=== PATIENT | male | born 1945 | race Caucasian/White ===

== ENCOUNTER 2020-06-30 11:33 | Emergency (ER) | payer MEDICARE ==
[~2020-06-30] VITALS: Ht 180.3 cm; Wt 93.2 kg
[2020-06-30 11:35] VITALS: BP 133/79; Ht 180.3 cm; Wt 93.2 kg
[2020-06-30] MEDS ORDERED: PROPRANOLOL HCL10 MG PO (11:51)
[2020-06-30] MEDS ORDERED: SINEMET 25-1001 EAC1 PO (11:51)
[2020-06-30] MEDS ORDERED: JANTOVEN10 MG PO (11:52)
[2020-06-30] MEDS ORDERED: MYSOLINE 50 MG50 MG PO (11:52)
[2020-06-30] MEDS ORDERED: ULTRAM50 MG PO (11:53)
[2020-06-30] MEDS ORDERED: LISINOPRIL2.5 MG PO (11:53)
[2020-06-30] MEDS ORDERED: LANOXIN125 MCG PO (11:53)
[2020-06-30] MEDS ORDERED: GLUCOPHAGE500 MG PO (11:54)
[2020-06-30] MEDS ORDERED: NOVOLIN 70/30 110 ML SUBD (11:54)
[2020-06-30 11:55] LABS: BASOPHILS 0.5 % (0-2); EOSINOPHILS 3.6 % (0-7); HEMATOCRIT 45.5 % (42.0-54.0); HEMOGLOBIN 15.3 g/dL (13.5-17.5); IMMATURE GRANULOCYTES 0.2 % (0-5); LYMPHOCYTE ABS# 1.26 10x3/uL (1.32-3.57); LYMPHOCYTES 22.7 % (15-50); MCH 32.2 pg (26.0-34.0); MCHC 33.6 g/dL (31.0-37.0); MCV 95.8 fL (80.0-100.0); MEAN PLATELET VOLUME 9.5 fL (7.4-10.4); MONOCYTES 11.2 % (2-11); NEUTROPHIL ABS# 3.44 10x3/uL (1.78-5.38); NEUTROPHILS 61.8 % (40-80); PLATELET COUNT 194 10x3/uL (130-400); RBC 4.75 10x6/uL (4.20-6.10); RDW 13.9 % (11.5-14.5); WBC 5.6 10x3/uL (4.8-10.8)
[2020-06-30 12:10] LABS: ANION GAP 15.6 mmol/L (8-16); CALCIUM 8.6 mg/dL (8.5-10.1); CARBON DIOXIDE 24.7 mmol/L (21.0-32.0); CREATININE - SERUM 1.1 mg/dL (0.6-1.3); POTASSIUM - SERUM 4.3 mmol/L (3.5-5.1)
[2020-06-30 12:16] LABS: ALBUMIN 3.1 g/dL (3.4-5.0); BILIRUBIN - TOTAL 0.41 mg/dL (0.2-1.3); PROTEIN - SERUM 7.4 g/dL (6.4-8.2)
[2020-06-30 13:00] LABS: APTT 79.7 SECONDS (22.8-39.4); INR 4.19 (0.85-1.17); PROTIME 37.7 SECONDS (11.6-15.0)
[2020-06-30] MEDS ORDERED: WARFARIN SODIU7.5 MG PO (13:21)
[2020-06-30 14:16] LABS: NITRITE NEGATIVE (NEGATIVE)
[2020-06-30 14:17] LABS: BACTERIA FEW HPF (NONE SEEN); BILIRUBIN NEGATIVE (NEGATIVE); KETONE SMALL mg/dL (NEGATIVE); SQUAMOUS EPITHELIAL RARE HPF (0-4); UROBILINOGEN NORMAL mg/dL (< 2); WHITE CELLS - URINE RARE HPF (0-1)
--- NOTE | 2020-06-30 16:28 | NUR ---
After obtaining verbal consent, CM met with patient and his caregiver / friend, Apoorva Foote [phone], about discharge planning / needs. Apoorva states she lives with the patient and helps him with his personal care needs. States he has been falling a lot lately and she is not able to lift the patient. States they have put his bed mattress on the floor to decrease risk of falls. States Dr. Lagunas's office has been trying to help them get patient into a fci. Patient is alert and oriented. Denies having a P.O.A. States his nephew, Dimitry Rojo, is his nearest living relative. Does not have Dimitry's phone number here with him. States it is at home. SHERYL called and spoke with Ashley at Dr. Lagunas's office. Ashley informed CM that they sent a referral to [facility] for patient. SHERYL asked Ashley if it would be okay to order home health for PT, OT, Home Health Aide and Academy Director. So they could work with patient until he was able to go into the fci. Ashley stated that would be okay and she would let Dr. Lagunas know. CM called and spoke with Flores at [facility] about [facility]. Flores informed CM that they were going to try to get patient in for SNF rehab and then, if he needed, group home care placement after that. But they are out of network with patient's insurance and patient does not have out of network benefits. Flores also informed CM that she gave patient's caregiver the paperwork to fill out for moth extermin[employer] Medicaid. CM informed patient and his caregiver that [facility] was out of network with his insurance. CM provided list of SNF in area that are in network with his insurance. Patient singed ESTER for [facility]. CM called and spoke with Myar about referral. Faxed records as requested. CM called several home health agencies to see who has social psychologist available. CM presented list of home health agencies with social workers to patient and caregiver. Signed ESTER for [facility]. Spoke with Rodriguez at [facility] about potential referral. Agency is available to admit patient on Saturday. CM discussed plan for Home Health admission Saturday and referral to [facility] for SNF / Project Coordinator Rn Care placement, and need for hospital bed with trapeze and side rails. Orders received. Faxed referral to [facility]. Faxed referral to Myra at [facility]. Patient signed ESTER for [facility]. Called [facility]. They are not able to deliver hospital bed today. Expecting shipment of side rails tomorrow and plan to deliver hospital bed tomorrow. CM informed patient and caregiver who verbalized understanding and satisfaction with discharge plans. CM faxed orders to DME. CM gave patient and caregiver CM's contact info and written instructions that DME will deliver hospital bed tomorrow; Home Health will admit on Saturday with Physical Therapy, Occupational Therapy, Home Health Aide and Academy Director to help caregiver fill out Retirement Medicaid Application and to help navigate SNF / Project Coordinator Rn Care placement; and someone with [facility] will be contacting them about SNF placement. Both patient and caregiver verbalized understanding and satisfaction with discharge plans. Ambulance to transport patient home.
--- NOTE | 2020-06-30 16:48 | MORECARE ---
CASE MANAGEMENT DISCHARGE SUMMARY PATIENT: DOOM FAJARDO UNIT: [id number] ADM DATE: AGE: 75 : 41 SEX: M ROOM/BED: AUTHOR: DYLAN,DOC PHYSICIAN: REFERRING PHYSICIAN: LEIGH CASTAÑEDA MD DATE OF SERVICE: 06/30/20 Case Management Discharge Planning Summary CT Patient Name: DOMO FAJARDO Attending MD : LEIGH TAO Medical Record: [id number] Encounter : [id number] Facility : [address] [place] [address] Medical Admission Date : 111:33 Center Discharge Date : 06/30/[address] [place] [address] Date of : DC Plan ID : [id number] Age/Sex/Martia : 75/ M/S Printed on : 06/30/20 16:46 CT DCP Review Details Anticipated D/C: Expected LOS : Case Status : INITIATED - Initial Reviewe: [id number] - Pattie Arora Initial Review: 06/30/2020 Planned Disposi: 01 - Home or Self Care (Routine Discharge) Final Discharge: - Final Reviewer : : Final Review : Comments CT Entered Date Type Reviewer 06/30/20 16:01 CT Discharge Planning Pattie Arora Comment After obtaining verbal consent, SHERYL met with patient and his caregiver / friend, Apoorva Foote [phone], about discharge planning / needs. Apoorva states she lives with the patient and helps him with his personal care needs. States he has been falling a lot lately and she is not able to lift the patient. States they have put his bed mattress on the floor to decrease risk of falls. States Dr. Lagunas's office has been trying to help them get patient into a correction. Patient is alert and oriented. Denies having a P.O.A. States his nephew, Dimitry Rojo, is his nearest living relative. Does not have Dimitry's phone number here with him. States it is at home. SHERYL called and spoke with Ashley at Dr. Lagunas's office. Ashley informed CM that they sent a referral to [facility] for patient. CM asked Ashley if it would be okay to order home health for PT, OT, Home Health Aide and Fulfillment Associate. So they could work with patient until he was able to go into the correction. Ashley stated that would be okay and she would let Dr. Lagunas know. CM called and spoke with Flores at [facility] about referral. Flores informed CM that they were going to try to get patient in for SNF rehab and then, if he needed, fci care placement after that. But they are out of network with patient's insurance and patient does not have out of network benefits. Flores also informed CM that she gave patient's caregiver the paperwork to fill out for fci Medicaid. CM informed patient and his caregiver that [facility] was out of network with his insurance. CM provided list of SNF in [facility] that are in network with his insurance. Patient singed ESTER for [facility]. CM called and spoke with Myra about referral. Faxed records as requested. CM called several home health agencies to see who has social director available. CM presented list of home health agencies with social workers to patient and caregiver. Signed ESTER for [facility]. Spoke with Rodriguez at [facility] about potential referral. Agency is available to admit patient on Saturday. CM discussed plan for Home Health admission Saturday and referral to [facility] for SNF / Print Shop Chief Clerk Care placement, and need for hospital bed with trapeze and side rails. Orders received. Faxed referral to [facility]. Faxed referral to Myra at [facility]. Patient signed ESTER for [facility]. Called [facility]. They are not able to deliver hospital bed today. Expecting shipment of side rails tomorrow and plan to deliver hospital bed tomorrow. CM informed patient and caregiver who verbalized understanding and satisfaction with discharge plans. CM faxed orders to DME. CM gave patient and caregiver CM's contact info and written instructions that DME will deliver hospital bed tomorrow; Home Health will admit on Saturday with Physical Therapy, Occupational Therapy, Home Health Aide and Fulfillment Associate to help caregiver fill out [employer] Medicaid Application and to help navigate SNF / Print Shop Chief Clerk Care placement; and someone with [facility] will be contacting them about SNF placement. Both patient and caregiver verbalized understanding and satisfaction with discharge plans. Ambulance to transport patient home. DCP [employer] [facility] [employer] DOMO FAJARDO MR#: [id number] /Age/Sex/Yphahp4-Oka-[id number] /75/M /S Attending Physician Name: GARRY TAMI [id number] Patient Account:[id number] [facility] Page -1 of 1 All edits/amendments must be made on the electronic document DICTATION DATE: 06/30/201645 TRUST VAULT CUSTODIAN: PEDRO 06/30/201645 RPT#: [id number] DC DATE:06/30/20 STATUS: [facility] [address] [place] [place] [address] END OF REPORT
== END 2020-06-30 15:46 | disposition home or self-care (01) ==
LOC: D.ER 11:33
PROVIDERS: Emergency Medicine
DX: M54.5 Low back pain (principal); S30.1XXA Contusion of abdominal wall, initial encounter; D68.2 Hereditary deficiency of other clotting factors; E11.65 Type 2 diabetes mellitus with hyperglycemia; W19.XXXA Unspecified fall, initial encounter; Y93.9 Activity, unspecified; Y92.9 Unspecified place or not applicable; G20 Parkinson's disease; I10 Essential (primary) hypertension; Z79.84 Long term (current) use of oral hypoglycemic drugs